=== PATIENT | female | born 1950 | race Caucasian/White ===

== ENCOUNTER → 2019-01-30 | Outpatient (CLI) | payer MEDICARE ==
--- NOTE | 2019-01-31 08:16 | MR ---
EXAMINATION TYPE: MR lumbar spine wo con DATE OF EXAM: 01/30/2019 COMPARISON: Outside x-ray lumbar spine report December 24, 2018. HISTORY: Acute Rt Sided Back Pain with Rt Sided Sciatica TECHNIQUE: Multiplanar, multisequence imaging of the lumbar spine is performed without IV contrast. FINDINGS: Sagittal images of the lumbar spine show vertebral body heights to remain satisfactory. The re is slight grade 1 anterolisthesis L4 on L5. There is multilevel disc desiccation with mild disc sp leila narrowing and disc desiccation L5-S1 level. The conus medullaris is normal in position and signa l ending at L1-L2 disc space level. The bone marrow signal intensity shows some heterogeneous Modic type II endplate changes anteriorly with mild anterior spurring at the T11-T12 level. Axial images show the T12-L1, L1-L2, L2-L3, and L3-L4 levels all to appear within normal limits. Axial images at the L4-L5 level show moderate facet degenerative changes and ligamentum flavum hypert rophy with slight spondylolisthesis. Spinal canal is preserved. Bilateral neural foramina are patent. Axial images at the L5-S1 levels moderate facet degenerative changes bilaterally. There is mild-to-mo derate broad disc bulge minimally effacing anterior thecal sac. Bilateral neural foramina remain brown nt. There is some cortical thinning in both kidneys presumed product of chronic medical renal disease. Th ere is round 1.0 cm T2 hyperintense lesion anteriorly right kidney axial image 21. Simple appearing c yst is thought present. IMPRESSION: Redemonstration of spondylolisthesis L4-L5 level. Degenerative changes lower lumbar spine as detailed above. No suspicious focal herniation seen to account for patient's right-sided radiculo maci type symptoms however.
== END | disposition home or self-care (01) ==
LOC: RADMRIMAIN 10:47
PROVIDERS: ATTEND Orthopaedic Surgery
DX: M43.16 Spondylolisthesis, lumbar region (principal); M47.816 Spondylosis without myelopathy or radiculopathy, lumbar region
CPT/HCPCS: 72148